=== PATIENT | male | born 1985 | race Caucasian/White ===

== ENCOUNTER 2017-11-21 09:41 | Emergency (ER) | payer BC ==
[2017-11-21 09:51] VITALS: BP 163/92; PULSE 90; RESP 18; TEMP 98.5
[2017-11-21] MEDS ORDERED: DIPH,PERTUS(ACELL)TETVAC-LF 0.5 ML VIAL IM ONE (10:08)
--- NOTE | 2017-11-21 10:25 | ED ---
Wound/Laceration HPI - General Chief Complaint: Wound/Laceration Stated Complaint: L EYE LAC Time Seen by Provider: 11/21/17 10:05 Source: patient Mode of arrival: ambulatory Limitations: no limitations - History of Present Illness Initial Comments: 2-year-old white male presents with a laceration to the left face. He states that he was doing some ice fishing today. He apparently was cutting a hole in an instrument came up and cut him underneath the left eye. He denies any visual complaints. This occurred just a couple hours prior to arrival. His last tetanus was in 2001. No other injuries or complaints or modifying factors. - Related Data Home Medications Medication Instructions Recorded Confirmed Gemfibrozil [Lopid] 600 mg PO DAILY 11/21/17 11/21/17 Multivitamins, Thera [Multivitamin 1 tab PO DAILY 11/21/17 11/21/17 (formulary)] Allergies Allergy/AdvReac Type Severity Reaction Status Date / Time metaproterenol [From Alupent] Allergy Unknown Verified 11/21/17 09:55 Childhood Review of Systems ROS Statement: Those systems with pertinent positive or pertinent negative responses have been documented in the HPI. ROS Other: All systems not noted in ROS Statement are negative. Past Medical History Past Medical History: Hyperlipidemia History of Any Multi-Drug Resistant Organisms: None Reported Additional Past Surgical History / Comment(s): bilateral tibial implants 2001, bone graft 2001, skin graft 2001, appendectomy 2009 Past Psychological History: No Psychological Hx Reported Smoking Status: Never smoker Past Alcohol Use History: Occasional Past Drug Use History: None Reported General Exam Limitations: no limitations Eye exam: Present: normal appearance, PERRL, EOMI Pupils: Present: normal accommodation, other (There is a 1 cm laceration noted just under the left eyelid. This is superficial. No bleeding noted. No deep structures noted. This is on the lateral aspect.) Neurological exam: Present: oriented X3 Psychiatric exam: Present: normal affect, normal mood Course Vital Signs 11/21/17 09:47 Temperature 98.5 F Pulse Rate 90 Respiratory 18 Rate Blood Pressure 163/92 O2 Sat by Pulse 98 Oximetry Medical Decision Making - Medical Decision Making The patient was seen and examined. The wound was anesthetized with approximately 2 mL of lidocaine plain. Excellent anesthesia obtained. The wound was thoroughly cleansed and closed with 3 simple interrupted 6-0 nylon sutures. No cough case for her,. Is counseled regarding his diagnosis in detail lives in no distress. Tetanus prophylaxis is given. Disposition Clinical Impression: Laceration Disposition: HOME SELF-CARE Condition: Good Instructions: Laceration (ED), Diphtheria/Pertussis/Tetanus Vaccine (By injection) Additional Instructions: Please have your sutures removed in approximately 7 days. Referrals: Mariama Dhillon MD [Primary Care Provider] - 11/27/17 Time of Disposition: 10:25
== END 2017-11-21 10:41 | disposition home or self-care (01) ==
LOC: EC 09:41
DX: S01.112A Laceration without foreign body of left eyelid and periocular area, initial encounter (principal); E78.5 Hyperlipidemia, unspecified; Z23 Encounter for immunization; Z88.8 Allergy status to other drugs, medicaments and biological substances; Z79.899 Other long term (current) drug therapy; W22.8XXA Striking against or struck by other objects, initial encounter; Y93.29 Activity, other involving ice and snow
CPT/HCPCS: 12011; 90471; 90715; 99282